=== PATIENT | female | born 1995 ===

== ENCOUNTER 2016-04-13 22:43 | Emergency (ER) | payer SELFPAY ==
[~2016-04-13] VITALS: Ht 165.1 cm; Wt 81.5 kg
[2016-04-13 22:44] VITALS: BP 130/85; PULSE 97; RESP 18; TEMP 99; O2SAT 98
== END 2016-04-13 23:54 | disposition left against medical advice (07) ==
LOC: NED 22:43
DX: R10.9 Unspecified abdominal pain (principal)
CPT/HCPCS: 99281